=== PATIENT | male | born 2000 | race Caucasian/White ===

== ENCOUNTER 2021-04-18 06:24 | Emergency (ER) | payer MEDICAID ==
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
[2021-04-18 13:18] LABS: ACETAMINOPHEN 0 ug/mL (10-30)
== END 2021-04-18 17:00 ==
LOC: JD.ED 06:24
DX: F10.129 Alcohol abuse with intoxication, unspecified (principal); Z20.822 Contact with and (suspected) exposure to COVID-19; Y90.5 Blood alcohol level of 100-119 mg/100 ml
CPT/HCPCS: 36415; 80053; 80143; 80179; 80306; 80307; 82947; 84443; 85025; 99285; U0002